=== PATIENT | male | born 1975 | race Two or more races ===

== ENCOUNTER → 2023-07-13 | Outpatient (CLI) | payer OTHER ==
--- NOTE | 2023-07-14 19:50 | MR ---
EXAMINATION TYPE: MR abdomen wo/w con DATE OF EXAM: 07/13/2023 8:32 AM CLINICAL INDICATION:Male, 48 years old with history of R19.04 QUADRANT ABDOMINAL SWELLING, MASS AND L UMP; PHH, Palpable soft tissue lump, anterior/LLQ. COMPARISON: None TECHNIQUE: Multiplanar multi-sequence imaging was performed without contrast. Post contrast imaging was performed. Post IV contrast subtraction images were also submitted for review. IV Contrast: 10.5 cc Gadavist FINDINGS: LOWER CHEST: No gross irregularity. ABDOMEN Liver: No evidence for hepatic steatosis or cirrhosis. Gallbladder and Bile ducts: No evidence for ductal dilation, or biliary stricture or evidence of chol edocholithiasis. The gallbladder is within normal limits. Pancreas: No ductal dilation. No evidence for solid mass. Spleen: Normal for size. Adrenal glands: Unremarkable. Kidneys: No evidence for obstructive uropathy. No suspicious renal masses. Stomach and Bowel: No evidence for bowel wall thickening or evidence for obstruction.. Peritoneum: No evidence of pneumoperitoneum or free fluid. Vasculature: No aortic aneurysm. Musculoskeletal: The osseous structures appear intact. Lymph Nodes: No gross evidence for lymphadenopathy. Abdominal wall: Fat-containing umbilical hernia. No evidence for subcutaneous mass in the left lower quadrant. No palpable marker is visualized. IMPRESSION: No left lower quadrant mass visualized. The subcutaneous tissues are within normal limits with abunda nce of lipomatous tissue. No palpable marker was placed on the patient. Consider ultrasound evaluatio n.
== END | disposition home or self-care (01) ==
LOC: RADMRIMAIN 07:38
PROVIDERS: ATTEND Family Medicine
DX: R19.04 Left lower quadrant abdominal swelling, mass and lump (principal)
CPT/HCPCS: 74183; A9585